=== PATIENT | male | born 1965 | race Caucasian/White ===

== ENCOUNTER → 2018-12-10 09:52 | Outpatient (CLI) | payer OTHER | END | disposition home or self-care (01) | LOC: D.HCCARDIO 09:52 | PROVIDERS: ATTEND Internal Medicine Cardiovascular Disease | DX: I10 Essential (primary) hypertension (principal); I20.9 Angina pectoris, unspecified ==

== ENCOUNTER → 2018-12-24 08:49 | Outpatient (CLI) | payer OTHER | END | disposition home or self-care (01) | LOC: D.HCCARDIO 08:49 | PROVIDERS: ATTEND Internal Medicine Cardiovascular Disease | DX: I20.9 Angina pectoris, unspecified (principal) ==

== ENCOUNTER 2019-01-19 11:46 | Outpatient (CLI) | payer OTHER ==
[~2019-01-19] VITALS: Ht 175.3 cm; Wt 97.7 kg
--- NOTE | ~2019-01-19 | HEMODYNAMI ---
PATIENT:LIZBETH CABRERA MEDICAL RECORD: [id number] : 69 LOCATION:[facility] ADMISSION DATE: 01/19/19 Generatedon:01/19/201915:02 Patient name: LIZBETH CABRERA Patient #: [id number] SSN: D OB: 1965 Date of study: 01/19/2019 Page: Of Hemodynamic Procedure Report Patient Data Patient Demographics Procedure consent was obtained First Name: LIZBETH Gender: Male Last Name: DEBORAH : 1965 Middle Initial: DARIUS Age: 53 year(s) Patient #: [id number] Race: Unknown Additional ID: [id number] Contact details [address]: [address] [place] [address] State: [place] City: [place] Zip code: [address] Past Medical History Allergies: No known allergies Admission Admission Data Admission Date: 01/19/2019 Admission Time: 11:46 Height (in.): 69 BSA: 2.13 (m2) Height (cm.): 175.26 BMI: 31.58 (kg/m2) Weight (lbs.): 213.85 Weight (kg.): 97 Lab Results Lab Result Date: 01/19/2019 Lab Result Time: 0:00 Biochemistry Name Units Result Min Max BUN mg/dl 19 --(----)*- 7 18 Creatinine mg/dl 0.9 --(-*--)-- 0.6 1.3 CBC Name Units Result Min Max Hematocrit % 45.3 --(-*--)-- 42 54 Hemoglobin g/dl 16.1 --(--*-)-- 13.5 17.5 Procedure Procedure Types Cath Procedure Diagnostic Procedure C [facility] w/Coronaries Sedation Charges Moderate Sedation up to 15 minutes Procedure Description Procedure Date Procedure Date: 01/19/2019 Procedure Start Time: 14:39 Procedure End Time: 15:01 Procedure Staff Name Function Justin Bass MD Performing Physician Kandice Joshua RT Monitor Shashi Carrillo RT Scrub Buffie Ruiz RN Nurse Procedure Data Cath Procedure Fluoroscopy Diagnostic fluoroscopy Total fluoroscopy Time: 3.1 time: 3.1 min min Diagnostic fluoroscopy Total fluoroscopy dose: 582 dose: 582 mGy mGy Contrast Material Contrast Material Type Amount (ml) Isovue 300 58 Entry Location Entry Primary Successful Side Size Upsize Upsize Entry Closure Dunne ccessful Closure Location (Fr) 1 (Fr) 2 (Fr) Remarks Device Remarks Radial Right 6 Fr Mechanical artery Short Compression Femoral Right 5 Fr Exoseal artery Estimated blood loss: 10 ml Diagnostic catheters Device Type Used For End Catheter Placement DIAGNOSTIC Art 110cm Procedure 5Fr catheter ([id number]) MULTIPACK JL 4.0 5Fr Procedure catheter MULTIPACK 3DRC 5Fr Procedure catheter MULTIPACK Pigtail 5 Fr Procedure catheter Procedure Complications No complications Procedure Medications Medication Administration Route Dosage Oxygen etCO2 Nasal cannula 2 l/min Lidocaine 2% added to field 20 Heparin Flush Bag added to field 2 bags (1000units/500ml NS) 0.9% NaCl I.V. 100 ml/hr Radial Cocktail added to field 1 syringe (Verapamil 2mg/Nitro 400mcg/Heparin 1500units) Versed I.V. 2 mg Fentanyl I.V. 100 mcg Versed I.V. 2 mg Fentanyl I.V. 100 mcg Versed I.V. 1 mg Fentanyl I.V. 50 mcg Hemodynamics Rest BSA: 2.13 (m2) HGB: 16.1 (g/dl) O2 Consumption: Estimated: 253.93 (ml/min) O2 Co nsumption indexed: Estimated:119.22 (ml/min/m) Heart Rate: 70 (bpm) Pressure Samples Time Site Value (mmHg) Purpose Heart Use Rate(bpm) 14:51 LV 132/8,20 Snapshot 73 14:51 LV 133/7,8 Snapshot 68 14:52 AO 102/61(77) Pullback 76 14:52 LV 127/5,15 Pullback 76 Gradients Valve Time Site 1 Site 2 Mean SEP/DFP Peak To Heart Use (mmHg) (sec/min) Peak Rate (mmHg) (bpm) Aortic 14:52 LV AO 21 9 25 76 127/5,15 102/61(77) Calculations Valve P-P Mean Valve Index Valve Source Name Gradient Area Flow (cm2) Aortic 25 21 25 21 Snapshots Pre Cath Intra NCS Post Cath Vital Signs Time Heart Resp SPO2 etCO2 NIBP (mmHg) Rhythm Pain Sedation Rate (ipm) (%) (mmHg) Status Level (bpm) 14:11:20 72 15 97 35.2 127/88(103) NSR 0 (11) 10(A) , No pain 14:15:32 71 17 94 39.7 120/76(105) NSR 0 (11) 10(A) , No pain 14:19:40 61 18 94 42.7 116/81(95) NSR 0 (11) 10(A) , No pain 14:23:46 66 18 94 38.2 116/81(100) NSR 0 (11) 10(A) , No pain 14:27:56 69 18 94 36.7 122/71(93) NSR 0 (11) 10(A) , No pain 14:32:10 68 15 95 13.5 125/70(103) NSR 0 (11) 10(A) , No pain 14:36:23 65 16 93 42.7 124/72(92) NSR 0 (11) 10(A) , No pain 14:40:34 69 15 95 17.2 113/81(94) NSR 0 (11) 9(A) , No pain 14:44:46 71 15 94 32.9 114/70(94) NSR 0 (11) 9(A) , No pain 14:48:56 67 17 93 17.2 109/77(102) NSR 0 (11) 9(A) , No pain 14:53:03 71 15 96 11.2 114/73(94) NSR 0 (11) 10(A) , No pain 14:57:17 68 13 94 39 103/69(97) NSR 0 (11) 10(A) , No pain 15:01:35 78 15 95 38.2 114/73(88) NSR 0 (11) 10(A) , No pain Medications Time Medication Route Dose Verified Delivered Reason Notes Effectiveness by by 14:10:47 Oxygen etCO2 2 l/min Justin Buffie used for Nasal Kali Ruiz RN procedure cannula 14:10:56 Lidocaine 2% added 20ml Justin Justin used for to vial Kali Bass MD procedure field 14:11:03 Heparin Flush added 2 bags Justin Justin used for Bag to Kali Bass MD procedure (1000units/500ml field NS) 14:11:10 0.9% NaCl I.V. 100 Justin Buffie Per ml/hr Kali Ruiz RN physician 14:15:49 Radial Cocktail added 1 Justin Justin for (Verapamil to syringe Kali Bass MD vasodilation 2mg/Nitro field 400mcg/Heparin 1500units) 14:38:44 Versed I.V. 2 mg Justin Buffie for sedation Kali Ruiz RN 14:38:50 Fentanyl I.V. 100 mcg Justin Buffie for sedation Kali Ruiz RN 14:42:37 Versed I.V. 2 mg Justin Buffie for sedation Kali Ruiz RN 14:42:41 Fentanyl I.V. 100 mcg Justin Buffie for sedation Kali Ruiz RN 14:46:29 Versed I.V. 1 mg Justin Buffie for sedation Kali Ruiz RN 14:46:33 Fentanyl I.V. 50 mcg Justin Buffie for sedation Kali Ruiz RN Procedure Log Time Note 13:46:08 Patient Weight : 213.85 lbs 13:47:23 Signed procedure consent form obtained from patient. 13:47:24 Diagnostic Cath status Elective 13:47:25 Time tracking: Regular hours (M-F 7:00 - 5:00) 13:47:28 Plan of Care:Hemodynamics will remain stable., Cardiac rhythm will remain stable., Comfort level will be maintained., Respiratory function will remain adequate., Patient/ family verbilizes understanding of procedure., Procedure tolerated without complication., Recovers from procedure without complications.. 13:48:22 Shashi GARVEY(R) sent for patient. Start room use. 13:48:31 Patient allergic to No known allergies 13:51:44 Patient received from Pre/Post Procedure Room to CCL 2 Alert and oriented. Tansferred to table in Supine position. 13:51:45 Warm blankets applied, and alexis hugger turned on for patient comfort. 13:51:45 Correct patient and procedure confirmed by team. 13:51:46 ECG and BP/O2 sat monitors applied to patient. 13:51:53 H&P Date Dictated: 01/19/2019 New H&P dictated by physician.. 14:06:38 Baseline sample Acquired. 14:06:39 Vital chart was started 14:06:47 Rhythm: sinus rhythm 14:06:48 Full Disclosure recording started 14:06:49 Pre-procedure instructions explained to patient. 14:06:50 Pre-op teaching completed and patient verbalized understanding. 14:06:56 Patient NPO since Midnight. 14:06:57 Family in patients room. 14:07:00 Is patient on blood thinner?No 14:07:01 Patient diabetic? No. 14:07:04 Previous problem with sedation/anesthesia? No ? 14:07:04 Snore? Yes 14:07:05 Sleep apnea? Yes 14:07:19 Deviated septum? No 14:07:21 Opens mouth fully? Yes 14:07:21 Sticks out tongue? Yes 14:07:24 Airway obstruction? No ? 14:07:25 Dentures? No ? 14:07:28 Modified Anastacio's test Ulnar < 7 seconds 14:07:30 Patient pain scale 0/10 ?. 14:09:26 Patient Height : 69 inches 14:10:02 IV patent on arrival in left hand with 0.9% NaCl at [facility]. 14:10:20 Lab Result : BUN 19 mg/dl 14:10:20 Lab Result : Hemoglobin 16.1 g/dl 14:10:20 Lab Result : Creatinine 0.9 mg/dl 14:10:20 Lab Result : Hematocrit 45.3 % 14:10:23 Lab results completed and on chart. 14:10:26 Right Radial & Right Groin area was prepped with chlora-prep and draped in sterile fashion 14:10:27 Alarms reviewed by R. N. 14:10:27 Sharps counted by scrub and verified by R.N. 14:10:47 Oxygen 2 l/min etCO2 Nasal cannula was administered by Juan M Ruiz RN; used for procedure; 14:10:56 Lidocaine 2% 20ml vial added to field was administered by Justin Bass MD; used for procedure; 14:11:03 Heparin Flush Bag (1000units/500ml NS) 2 bags added to field was administered by Justin Bass MD; used for procedure; 14:11:10 0.9% NaCl 100 ml/hr I.V. was administered by Juan M Ruiz RN; Per physician; 14:15:49 Radial Cocktail (Verapamil 2mg/Nitro 400mcg/Heparin 1500units) 1 syringe added to field was administered by Justin Bass MD; for vasodilation; 14:38:31 --------ALL STOP TIME OUT------ 14:38:32 Final Timeout: patient, procedure, and site verified with staff and physician. All members of the team are in agreement. 14:38:34 Right Radial & Right Groin site verified by team. 14:38:38 Maximum allowable Isovue 300 dose 300.ml. Physician notified. (300ml for normal creatinines. For patients with creatinine of 1.7 or higher multiply weight(kg) x 5 divided by creatinine.) 14:38:42 Fire Safety Assessment: A--An alcohol-based skin anteseptic being used preoperatively., C--Open oxygen or nitrous oxide is being used., D--An ESU, laser, or fiber-optic light is being used. 14:38:44 Versed 2 mg I.V. was administered by Juan M Ruiz RN; for sedation; 14:38:44 Physical assessment completed. ASA score P 2 - A patient with mild systemic disease as per Justin Bass MD. 14:38:46 Sedation plan: IV Moderate Sedation Medication:Versed, Fentanyl 14:38:50 Fentanyl 100 mcg I.V. was administered by Juan M Ruiz RN; for sedation; 14:39:48 Procedure started. 14:39:52 Local anesthetic to right radial artery with Lidocaine 2% by Justin Bass MD.INITIAL ACCESS ONLY 14:41:12 Use device set Radial Dx or PCI 14:41:13 ACIST Syringe (63104) opened to sterile field. 14:41:14 Bag Decanter () opened to sterile field. 14:41:15 ACIST Hand Control (52715) opened to sterile field. 14:41:15 ACIST Manifold (98026) opened to sterile field. 14:41:16 Tegaderm 4 x 4 (1626W) opened to sterile field. 14:41:18 Medline Cath Pack ([id number]) opened to sterile field. 14:41:18 DIAGNOSTIC WIRE .035 260cm J wire (677214) opened to sterile field. 14:41:19 MBrace Wrist Support ([id number]) opened to sterile field. 14:41:20 NEEDLE Cook 21G 4cm Radial (G89172) opened to sterile field. 14:41:20 SHEATH 6FR Slender (80-1060) opened to sterile field. 14:41:34 A 6 Fr Short sheath was inserted into the Right Radial artery 14:41:50 A DIAGNOSTIC Art 110cm 5Fr catheter (389456) was advanced over the wire and used for Procedure. 14:42:37 Versed 2 mg I.V. was administered by Juan M Ruiz RN; for sedation; 14:42:41 Fentanyl 100 mcg I.V. was administered by Juan M Ruiz RN; for sedation; 14:44:10 unable to go radial- radial loop. will proceed to groin 14:44:30 Use device set Multipack Set 14:44:31 DIAGNOSTIC Multipack 5Fr catheter set (MY8196) opened to sterile field. 14:45:20 Local anesthetic to right femoral artery with Lidocaine 2% by Justin Bass MD.ADDITIONAL ACCESS 14:45:42 SHEATH 5FR [place] (UTH809) opened to sterile field. 14:45:51 A 5 Fr sheath was inserted into the Right Femoral artery 14:46:21 A MULTIPACK JL 4.0 5Fr catheter was advanced over the wire and used for Procedure. 14:46:29 Versed 1 mg I.V. was administered by Juan M Ruiz RN; for sedation; 14:46:33 Fentanyl 50 mcg I.V. was administered by Juan M Ruiz RN; for sedation; 14:47:19 LCA angiography performed. 14:48:21 Catheter exchanged over wire. 14:48:54 A MULTIPACK 3DRC 5Fr catheter was advanced over the wire and used for Procedure. 14:50:03 RCA angiography performed. 14:50:07 Catheter exchanged over wire. 14:50:39 EXOSEAL 5Fr (EX500) opened to sterile field. 14:50:41 TR BAND Standard ([id number]) opened to sterile field. 14:50:46 A MULTIPACK Pigtail 5 Fr catheter was advanced over the wire and used for Procedure. 14:51:08 LV gram done using BAIRD 14:51:12 Injector settings: Ml/sec: 10, Volume: 20, 14:52:01 LV hemodynamics recorded. 14:52:10 EF : 55 % 14:52:25 Catheter removed. 14:54:02 Sheath removed intact; hemostasis achieved with Exoseal to the Right Femoral artery. 14:54:06 Procedure ended.(Physican Out) 14:54:24 Fluoroscopy time 03.10 minutes. 14:54:28 Fluoroscopy dose: 582 mGy 14:54:28 Flurop Dose total: 582 14:54:34 Contrast amount:Isovue 300 58ml. 14:54:35 Sharps counted by scrub and verified by R.N. 14:54:44 Sheath removed intact; hemostasis achieved with Mechanical Compression to the Right Radial artery. 14:54:55 Post-procedure physical assessment completed. ASA score P 2 - A patient with mild systemic disease as per Justin Bass MD. 14:55:02 TR band inflated with 10cc of air. 14:55:08 Post procedure rhythm: sinus rhythm 14:55:11 Estimated blood loss: 10 ml 14:55:12 Post procedure instruction explained to patient.Patient verbalizes understanding. 14:55:12 Patient needs reinforcement of post procedure teaching. 14:55:37 Procedure type changed to Cath procedure, Diagnostic procedure, LHC, LHC w/Coronaries, Sedation Charges, Moderate Sedation up to 15 minutes 14:56:29 Procedure and supply charges have been captured, reviewed, submitted and are correct. 14:56:33 Procedure Complication : No complications 15:01:45 Vital chart was stopped 15:01:46 See physician's report for complete and final results. 15:01:48 Report given to Pre/Post Procedure Room. 15:01:51 Patient transfered to Pre/Post Procedure Room with Bed. 15:01:53 Procedure ended. 15:01:53 Full Disclosure recording stopped 15:01:56 End room use (Document Last) Device Usage Item Name Manufacture Quantity Catalog Hospital Part Current Minimal Lot# / Number Charge Number Stock Stock Serial# Code ACIST Acist 1 64364 159644 647406 873114 20 Syringe Medical (00843) Systems Inc Bag Microtek 1 525337 48603 424871 5 Decanter Medical Inc. () ACIST Hand Acist 1 19111 478348 472677 889414 5 Control Medical (12336) Systems Inc ACIST Acist 1 49252 475611 590097 604088 5 Manifold Medical (57563) Systems Inc Tegaderm 4 3M 1 1626W 582402 419618 144157 5 x 4 (1626W) Medline Medline 1 [id number] 894069 60573 710210 5 Cath Pack ([id number]) DIAGNOSTIC [facility] Jairon 1 340997 496330 321170 576941 30 WIRE .035 260cm J wire (542218) MBrace Advanced 1 140-0250-00 720430 85679 747218 5 Wrist Vascular Support Dynamics ([id number]) NEEDLE AdQuantic [place] Medical 1 S80407 584071 440123 299627 5 21G 4cm Radial (F88578) SHEATH 6FR Terumo 1 [id number] 396621 718103 958672 5 Slender (80-1060) DIAGNOSTIC Terumo 1 405023 348548 826421 666029 5 Art 110cm 5Fr catheter (713845) DIAGNOSTIC Cardinal 1 DX0953 386692 71990 745385 30 Multipack Health 5Fr catheter set (LK4605) SHEATH 5FR Terumo 1 RAX687 561905 237766 055861 5 [place] (UOD319) MULTIPACK Cardinal 1 523280 5 JL 4.0 5Fr Health catheter MULTIPACK Cardinal 1 664214 5 3DRC 5Fr Health catheter MULTIPACK Cardinal 1 738934 5 Pigtail 5 Health Fr catheter EXOSEAL 5Fr Cardinal 1 EX500 399938 163597 808450 10 (EX500) Health TR BAND Terumo 1 [id number] 246205 689055 354379 40 Standard ([id number]) Signature Audit [place] Stage Time Signature Unsigned Intra-Procedure 01/19/2019 Kandice Joshua 3:02:28 PM RT(R) Signatures Monitor : Kandice Joshua Signature : RT Date : Time : [facility] [address] [place] [address]
[2019-01-19] MEDS ORDERED: COZAAR100 MG PO (12:06)
[2019-01-19] MEDS ORDERED: ALBUTEROL SULF8.5 GM INH (12:07)
[2019-01-19] MEDS ORDERED: EFFEXOR37.5 MG PO (12:07)
[2019-01-19] MEDS ORDERED: CATAPRES0.1 MG PO (12:08)
[2019-01-19 12:20] VITALS: BP 134/84; Ht 175.3 cm; Wt 97.7 kg
[2019-01-19 12:37] LABS: CALC OSMOLALITY 268 mosm/kg (275-300); CALCIUM 8.9 mg/dL (8.5-10.1); CARBON DIOXIDE 25.8 mmol/L (21.0-32.0); CHLORIDE - SERUM 101 mmol/L (98-107); CREATININE - SERUM 0.9 mg/dL (0.6-1.3); GLUCOSE 84 mg/dL (74-106); POTASSIUM - SERUM 4.4 mmol/L (3.5-5.1); SODIUM 134 mmol/L (136-145); UREA NITROGEN 19 mg/dL (7-18); eGFR NON AFRICAN AMERICAN > 90 mL/min (90-120)
[2019-01-19 12:38] LABS: BASOPHILS 0.4 % (0-2); EOSINOPHILS 2.1 % (0-7); HEMATOCRIT 45.3 % (42.0-54.0); HEMOGLOBIN 16.1 g/dL (13.5-17.5); IMMATURE GRANULOCYTES 1.4 % (0-5); MCH 29.5 pg (26.0-34.0); MCHC 35.5 g/dL (31.0-37.0); MEAN PLATELET VOLUME 10.6 fL (7.4-10.4); MONOCYTES 8.4 % (2-11); NEUTROPHILS 53.7 % (40-80); PLATELET COUNT 190 10x3/uL (130-400); RBC 5.46 10x6/uL (4.20-6.10); RDW 13.5 % (11.5-14.5); WBC 7.6 10x3/uL (4.8-10.8)
--- NOTE | 2019-01-19 15:12 | NUR ---
PT ARRIVED TO ROOM BY STRETCHER IN SUPINE POSITION. PLACED ON MONITORS. ASSESSMENT COMPLETED. DR. CARRION AT BEDSIDE SPEAKING WITH PT'S .
--- NOTE | 2019-01-19 15:30 | NUR ---
PT RESTING COMFORTABLY. DENIES NAUSEA/PAIN. VSS. RIGHT GROIN DRESSING C/D/I. NO S/S OF HEMATOMA NOTED. RIGHT RADIAL TR BAND IN PLACE. NO BLEEDING/HEMATOMA NOTED.
--- NOTE | 2019-01-19 16:04 | NUR ---
PT'S HEAD OF BED INC TO 30 DEGREES. TOLERATED WELL. RIGHT GROIN DRESSING C/D/I. NO S/S OF HEMATOMA NOTED. 3cc OF AIR REMOVED FROM TR BAND. NO BLEEDING/HEMATOMA NOTED. VSS. FAMILY AT BEDSIDE. WILL CONTINUE TO MONITOR. PT GIVEN DRINK AND ICE CREAM. HE DID NOT WANT SANDWICH TRAY.
--- NOTE | 2019-01-19 16:14 | NUR ---
3cc OF AIR REMOVED FROM TR BAND. NO BLEEDING/HEMATOMA NOTED. RIGHT GROIN DRESSING C/D/I. NO S/S OF HEMATOMA NOTED. VSS. FAMILY AT BEDSIDE. CALL LIGHT WITHIN REACH.
--- NOTE | 2019-01-19 16:30 | NUR ---
3cc OF AIR REMOVED FROM TR BAND. NO BLEEDING/HEMATOMA NOTED. LEFT HAND PIV D/C'D WITH CATH TIP INTACT. PT TOLERATED WELL.
--- NOTE | 2019-01-19 16:37 | NUR ---
RIGHT GROIN DRESSING C/D/I. NO S/S OF HEMATOMA NOTED. PT INSTRUCTED TO GET UP AND GET DRESSED. FAMILY AT BEDSIDE.
--- NOTE | 2019-01-19 16:45 | NUR ---
RIGHT RADIAL TR BAND REMOVED. DRESSING APPLIED. NO BLEEDING/HEMATOMA NOTED. RIGHT GROIN DRESSING C/D/I. NO S/S OF HEMATOMA NOTED. PT SITTING UP ON SIDE OF BED. DENIES ANY COMPLAINTS AT THIS TIME.
--- NOTE | 2019-01-19 16:50 | NUR ---
DISCUSSED DISCHARGE INSTRUCTIONS WITH PT AND PT'S FAMILY. THEY VOICED UNDERSTANDING.
--- NOTE | 2019-01-19 16:55 | NUR ---
PT TAKEN OUT TO VEHICLE BY WHEELCHAIR. NO S/S OF DISTRESS NOTED. ALL BELONGINGS AND PAPERWORK IN HAND.
== END 2019-01-19 16:55 | disposition home or self-care (01) ==
LOC: D.CATH 11:46
PROVIDERS: ATTEND Internal Medicine Cardiovascular Disease
DX: I20.9 Angina pectoris, unspecified (principal); Z01.812 Encounter for preprocedural laboratory examination

== ENCOUNTER 2020-12-04 10:22 | Day surgery (SDC) | payer BC ==
[~2020-12-04] VITALS: Ht 175.3 cm; Wt 83.6 kg
--- NOTE | ~2020-12-04 | OP ---
PATIENT NAME: LIZBETH CABRERA MEDICAL RECORD: [id number] :69 [facility] DATE: SURGEON: KEON MARIO DO DATE OF OPERATION: 12/04/2020 PROCEDURE: Colonoscopy with polypectomy. INDICATIONS: Screening for colorectal cancer with a family history positive for colon cancer in the patient's mother. SCOPE: Olympus video pediatric colonoscope. MEDICATIONS: Propofol 540 mg IV per Anesthesia. WITHDRAWAL TIME: 13 minutes. ESTIMATED BLOOD LOSS: Minimal. COMPLICATIONS: None. FINDINGS: Informed consent was given. The patient was made comfortable with the above medication. After reaching an adequate level of sedation by slow IV push, the patient was placed on his left side. A digital rectal examination was performed and was normal. The endoscope was then advanced under direct visualization through the rectum to the cecum and terminal ileum. The endoscope was slowly withdrawn, and the mucosa was carefully examined. The prep quality was excellent. There were 3 polyps visualized on today's examination. The first was located in the rectum. It was a benign-appearing sessile polyp, which measured approximately 8-9 mm in diameter. It was removed using a hot snare. In the sigmoid colon, there was a large semi-pedunculated polyp, which measured approximately 2-2.5 cm in size. It was removed using a hot snare. In the transverse colon, there was a semi-pedunculated polyp, which measures approximately 1.5 cm in size, which was removed using a hot snare. There were no diverticula visualized on today's examination. Retroflexion was performed in the rectum with visualization of grade I internal hemorrhoids without bleeding. The endoscope was withdrawn from the patient. The patient tolerated the procedure well and there were no complications. IMPRESSION: 1. Grade I internal hemorrhoids without bleeding. 2. Three polyps as described above, removed using a hot snare. PLAN AND RECOMMENDATIONS: 1. Discharge home when recovery parameters are met. 2. Follow up biopsy specimen results. 3. High fiber diet. 4. Continue current medications. 5. Recall colonoscopy in 1-2 years. Pending pathology, which may change these recommendations. TRANSINT:[id number] Voice Confirmation ID: [id number] DOCUMENT ID: [id number] OPERATIVE REPORT [id number] LIZBETH CABRERA KEON MARIO DO CC: [id number] DICTATION DATE: 12/04/20 1235 OIL PRODUCER: 03/29/21 2146 [facility] 12/04/20 [id number] [place] [address]
[~2020-12-04 10:22] MED LIST: ALBUTEROL SULF8.5 GM INH; CATAPRES0.1 MG PO; COZAAR100 MG PO; EFFEXOR37.5 MG PO
[2020-12-04 10:59] VITALS: BP 126/89; Ht 175.3 cm; Wt 83.6 kg
--- NOTE | 2020-12-04 13:22 | NUR ---
DC INSTRUCTIONS GIVEN TO PT/FAMILY. STATE UNDERSTANDING. DC'D IV CATH FULLY INTACT. WILL DC SHORTLY.
--- NOTE | 2020-12-04 13:29 | NUR ---
PT LEFT UNIT VIA [id number]
== END 2020-12-04 13:24 | disposition home or self-care (01) ==
LOC: D.OPS 10:22
PROVIDERS: ATTEND Internal Medicine Gastroenterology
DX: Z12.11 Encounter for screening for malignant neoplasm of colon (principal); Z80.0 Family history of malignant neoplasm of digestive organs; K63.5 Polyp of colon; K64.0 First degree hemorrhoids